=== PATIENT | female | born 1980 | race Hispanic/Latino ===

== ENCOUNTER 2020-04-19 07:25 | Inpatient (IN) | payer OTHER, SELFPAY ==
[2020-04-19 07:50] LABS: #Basophils 0.1 thou/uL (0.0-0.2); #Eosinphils 0.2 thou/uL (0.0-0.7); #Lymphocytes 3.4 thou/uL (1.20-3.40); #Monocytes 0.5 thou/uL (0.11-0.59); %Basophils 0.5 % (0.0-1.0); %Eosinophils 1.9 % (0.0-10.0); %Lymphocytes 27.9 % (21.0-51.0); %Monocytes 3.9 % (0.0-10.0); %Neutrophils 65.8 % (42.0-75.0); Mean Corpuscular HGB CONC 33.9 g/dL (32.0-36.0); Mean Corpuscular Hemoglobin 28.4 pg (27.0-31.0); Mean Corpuscular Volume 83.7 fL (78.0-98.0); Platelet Count 262 thou/uL (130-400); RBC Distribution Width 11.8 % (11.5-14.5); Red Blood Cell (RBC) Count 4.59 mill/uL (4.20-5.40); White Blood Cell (WBC) Count 12.1 thou/uL (4.8-10.8)
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
[2020-04-19 07:56] LABS: BHCG - Serum Negative (NEGATIVE); Pregs Control Background? CLEAR/WHITE (CLR/WHITE); Pregs Control Bar Appear? YES (CONTROL BAR)
[2020-04-19] MEDS ORDERED: Morphine 4 MG/ML VIAL ONE ×2 (07:57→11:10)
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
[2020-04-19] MEDS ORDERED: Ondansetron PF 4 MG/2 ML Vial ONE (07:58)
[2020-04-19 08:05] LABS: ALT (SGPT) 215 U/L (8-55); AST (SGOT) 347 U/L (5-34); Alkaline Phosphatase 87 U/L (40-110); Anion Gap 18 mmol/L (10-20); BUN (Urea Nitrogen) 12 mg/dL (7.0-18.7); Bilirubin, Total 0.3 mg/dL (0.2-1.2); Calc. Creatinine Clearance 0 mL/min (70-130); Calcium 8.8 mg/dL (7.8-10.44); Carbon Dioxide 18 mmol/L (22-29); Chloride 102 mmol/L (98-107); Globulin 3.6 g/dL (2.4-3.5); Glucose 227 mg/dL (70-105); Lipase 25 U/L (8-78); Protein, Total 7.6 g/dL (6.0-8.3); Sodium 134 mmol/L (136-145)
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
[2020-04-19] MEDS ORDERED: Dextrose 50% Abboject 50 ML SYRINGE SLOW IVP PRN ×2 (10:21→12:20)
[2020-04-19] MEDS ORDERED: Dextrose 5% in Water 1,000 ML IV PRN ×2 (10:21→12:20)
[2020-04-19] MEDS ORDERED: Ondansetron PF 4 MG/2 ML Vial IVP PRN (12:20)
[2020-04-19] MEDS ORDERED: Sodium Chloride 0.9% 1,000 ML IV SCH (12:30)
[2020-04-19] MEDS ORDERED: traMADol HCl 50 MG TAB PO SCH (13:00)
[2020-04-19] MEDS ORDERED: Iopamidol-370 76% 500 ML 1 ML ONE (13:23)
[2020-04-19] MEDS: traMADol HCl 50 MG TAB PO PRN (15:14)
[2020-04-19 15:32] VITALS: BMI 41.1
[2020-04-19] MEDS: Acetaminophen 500 MG TAB PO SCH ×2 (17:44→23:05)
[2020-04-19] MEDS: Ketorolac Tromethamine 30 MG/ML VIAL IVP SCH ×2 (17:44→23:04)
[2020-04-19] MEDS: HumaLOG 300 UNITS/3 ML VIAL SC PRN (17:45)
[2020-04-19] MEDS: traMADol HCl 50 MG TAB PO SCH ×2 (17:45→23:03)
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
[2020-04-19] MEDS: Famotidine 20 MG TAB PO SCH (22:00)
[2020-04-20 02:20] LABS: SARS-CoV-2 MS2 Positive; SARS-CoV-2 N Gene Negative; SARS-CoV-2 S Gene Negative; SARS-CoV-2 by NAA Not Detected (NotDetected); SARS-CoV-2 orf1ab Negative
[2020-04-20 05:51] LABS: #Eosinphils 0.3 thou/uL (0.0-0.7); #Lymphocytes 2.3 thou/uL (1.20-3.40); #Monocytes 0.5 thou/uL (0.11-0.59); #Neutrophils 5.1 thou/uL (1.40-6.50); %Basophils 0.3 % (0.0-1.0); %Eosinophils 3.5 % (0.0-10.0); %Monocytes 5.6 % (0.0-10.0); %Neutrophils 62.5 % (42.0-75.0); Hemoglobin 11.8 g/dL (12.0-16.0); Mean Corpuscular HGB CONC 33.1 g/dL (32.0-36.0); Mean Corpuscular Hemoglobin 27.3 pg (27.0-31.0); Mean Corpuscular Volume 82.6 fL (78.0-98.0); Mean Platelet Volume 6.9 fL (7.4-10.4); Platelet Count 272 thou/uL (130-400); RBC Distribution Width 11.7 % (11.5-14.5); Red Blood Cell (RBC) Count 4.33 mill/uL (4.20-5.40); White Blood Cell (WBC) Count 8.1 thou/uL (4.8-10.8)
[2020-04-20] MEDS: Acetaminophen 500 MG TAB PO SCH ×4 (06:45→23:23)
[2020-04-20] MEDS: traMADol HCl 50 MG TAB PO SCH ×4 (06:46→23:24)
[2020-04-20] MEDS: Ketorolac Tromethamine 30 MG/ML VIAL IVP SCH ×4 (06:47→23:23)
[2020-04-20 07:07] LABS: ALT (SGPT) 128 U/L (8-55); AST (SGOT) 105 U/L (5-34); Albumin 3.7 g/dL (3.5-5.0); Alkaline Phosphatase 76 U/L (40-110); Anion Gap 14 mmol/L (10-20); BUN (Urea Nitrogen) 14 mg/dL (7.0-18.7); Bilirubin, Total 0.6 mg/dL (0.2-1.2); Calc. Creatinine Clearance 207 mL/min (70-130); Calcium 8.6 mg/dL (7.8-10.44); Carbon Dioxide 24 mmol/L (22-29); Chloride 101 mmol/L (98-107); Globulin 3.4 g/dL (2.4-3.5); Glucose 164 mg/dL (70-105); Magnesium 1.9 mg/dL (1.6-2.6); Phosphorus 3.6 mg/dL (2.3-4.7); Potassium 3.6 mmol/L (3.5-5.1); Protein, Total 7.1 g/dL (6.0-8.3); Sodium 135 mmol/L (136-145)
[2020-04-20] MEDS: Famotidine 20 MG TAB PO SCH ×2 (08:53→21:01)
[2020-04-20] MEDS ORDERED: FLU VACC QS2020-21(6MOS UP)/PF 60 MCG/0.5 ML SYRINGE IM ONE (09:00)
[2020-04-20] MEDS ORDERED: Scopolamine 1.5 mg/72 hour Patch TD SCH (12:00)
[2020-04-20] MEDS: traMADol HCl 50 MG TAB PO PRN ×2 (12:58→18:23)
[2020-04-20] MEDS: HumaLOG 300 UNITS/3 ML VIAL SC PRN (21:01)
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
[2020-04-21] MEDS: traMADol HCl 50 MG TAB PO SCH ×2 (06:00→12:24)
[2020-04-21] MEDS: Acetaminophen 500 MG TAB PO SCH ×2 (06:00→12:23)
[2020-04-21] MEDS: Ketorolac Tromethamine 30 MG/ML VIAL IVP SCH ×2 (06:01→12:25)
[2020-04-21] MEDS: HumaLOG 300 UNITS/3 ML VIAL SC PRN ×2 (06:04→12:25)
[2020-04-21 06:06] LABS: #Basophils 0.1 thou/uL (0.0-0.2); #Eosinphils 0.4 thou/uL (0.0-0.7); #Lymphocytes 2.6 thou/uL (1.20-3.40); #Monocytes 0.5 thou/uL (0.11-0.59); #Neutrophils 5.8 thou/uL (1.40-6.50); %Basophils 0.8 % (0.0-1.0); %Eosinophils 4.5 % (0.0-10.0); %Lymphocytes 27.9 % (21.0-51.0); %Monocytes 5.2 % (0.0-10.0); %Neutrophils 61.7 % (42.0-75.0); Hemoglobin 11.7 g/dL (12.0-16.0); Mean Corpuscular HGB CONC 32.9 g/dL (32.0-36.0); Mean Corpuscular Hemoglobin 27.4 pg (27.0-31.0); Mean Corpuscular Volume 83.3 fL (78.0-98.0); Platelet Count 285 thou/uL (130-400); RBC Distribution Width 11.7 % (11.5-14.5); Red Blood Cell (RBC) Count 4.28 mill/uL (4.20-5.40); White Blood Cell (WBC) Count 9.4 thou/uL (4.8-10.8)
[2020-04-21 06:40] LABS: BUN (Urea Nitrogen) 15 mg/dL (7.0-18.7); Calc. Creatinine Clearance 207 mL/min (70-130); Calcium 8.3 mg/dL (7.8-10.44); Chloride 102 mmol/L (98-107); Glucose 156 mg/dL (70-105); Phosphorus 3.6 mg/dL (2.3-4.7); Potassium 3.8 mmol/L (3.5-5.1); Sodium 135 mmol/L (136-145)
[2020-04-21 07:14] LABS: Anion Gap 16 mmol/L (10-20); Carbon Dioxide 21 mmol/L (22-29)
[2020-04-21] MEDS: Famotidine 20 MG TAB PO SCH (08:39)
[2020-04-21 14:06] LABS: Hemoglobin A1c 8.2 % (4.0-6.0)
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
[2020-04-21 16:24] VITALS: BP 134/74; TEMP 97.9
[2020-04-21] MEDS ORDERED: metFORMIN 500 MG TAB PO SCH (17:00)
== END 2020-04-21 17:00 | disposition home or self-care (01) | DRG 89 ==
LOC: ERS 07:25 → ERHOLD 12:40 → SJJU 14:40 → OBSVTOIN 04-20 15:33
PROVIDERS: ADMIT Surgery; ATTEND Surgery
DX: S06.0X9A Concussion with loss of consciousness of unspecified duration, initial encounter (principal); Z20.828 Contact with and (suspected) exposure to other viral communicable diseases; Z23 Encounter for immunization; G89.11 Acute pain due to trauma; E66.9 Obesity, unspecified; R74.01 Elevation of levels of liver transaminase levels; E11.65 Type 2 diabetes mellitus with hyperglycemia; Z68.41 Body mass index [BMI] 40.0-44.9, adult; V03.90XA Pedestrian on foot injured in collision with car, pick-up truck or van, unspecified whether traffic or nontraffic accident, initial encounter
CPT/HCPCS: 36415; 36416; 70450; 71260; 72125; 74177; 80048; 80053; 83036; 83690; 83735; 84100; 84703; 85025; 86850; 86900; 86901; 87635; 90471; 90662; G0008; G0390; J1885; J2270; J2405; Q9967; U0003